=== PATIENT | female | born 1955 | race Caucasian/White ===

== ENCOUNTER 2021-08-13 14:00 | Outpatient (RCR) | payer MEDICARE, OTHER, SELFPAY ==
--- NOTE | 2021-07-19 09:59 | HP.PTEVAL ---
Patient's Visit Information FLORENCE SALGADO is a 65 year old F referred to Physical Therapy by Dr. Oswaldo Carlson MD with a diagnosis of R hip OA. Date of Evaluation: 07/16/21 Physical Therapist: Kapil Shah DPT - Visit Plan Frequency: 2x /Week Duration: 4 Weeks Plan: Start with BLE strengthening in aquatic setting. Focus on hip, core, quad, glutes. Pt. has not been very active over the past few months, adjust accordingly. - Subjective Pt. is here today for her initial evaluation with diagnosis of R hip OA. Pt. reports having pain in B hips, but her R is worse. Pt. reports trouble with sitting, getting up from sitting and lying down. Pt. reports overall having decreased exercise over the past few years due to covid. She was going to have her hip replaced previously, but did not due to COVID. She is sleeping in chair, lift chair due to weakness and pain. Pt. reports pain in C sign at bilateral hips. Pt. reports decreased pain at times when not moving, but never goes away. She ambulates with a cane, too painful without. Pt. denies N/T. She is hopeful to reduce reduce symptoms and get stronger for a LORE next month. - Pain L hip Pain Intensity (Out of 10): 4 Pain Intensity Range: 2, 6 R hip Pain Intensity (Out of 10): 4 Pain Intensity Range: 1, 5 - Objective POSTURE: Pt. has flexed posture, frequent wt. shifting from side to side. Uses cane to off load. PALPATION: Pt. has pain at B anterior hips. No lateral hip pain. NEURO: pt. has normal sensation in BLEs. Pt. has normal DTR bilaterally. ROM: Pt. has decreased hip ER/IR in B hips: 0 deg of hip IR, 30deg of hip ER, extension to 0deg, flexion ~85deg bilat. Pt. has tight hamstrings bilat. MMT: Pt. has 4-/5 strength through out BLEs. difficulty testing hip abd due to inability to lying on side. GAIT: Pt. ambulates with SPC, but has difficulty with increased lateral hip translation, trandelenburg noted, suggesting glute med weakness. Pt. has increased pain with each step. Pt. ambulated 255' this date prior to needing to stop. STAIRS: pt. able to negotiate with step to pattern, and lateral fashion at some points. - Balance/Special Test Scores Lower Extremity Functional Score: 18 TUG Test Time Seconds: 17 30 Second Chair Rise Test Seconds: 5 - Goals Goal 1:: LTG: Pt. to be I with HEP for B hip and LE strengthening. Goal Time Frame: 4-6 Weeks Goal 2:: STG: pt. to ambulate with SPC with decreased lateral hip translation for ~300 feet. Goal Time Frame: 2-4 Weeks Goal 3:: LTG: Pt. to have increased strength in BLEs to 4/ allowing for increased strength heading into LORE. Goal Time Frame: 4-6 Weeks Goal 4:: LTG: Pt. to complete sit to stand 30 sec rep test with at least 10 reps indicating increased functional strength. Goal Time Frame: 4-6 Weeks Goal 5:: LTG: Pt. to complete TUG in less than 12 sec indicating increased functional mobility/independence. Goal Time Frame: 4-6 Weeks - Rehabilitation Potential Physical Therapy Diagnosis: Pt. has signs and symptoms consistent with B hip OA. Pt. is having surgery in July and would benefit from increased strengthening in aquatic setting to provide potential for better outcome. Rehabilitation Potential: Good - Anticipated Interventions Patient/Client Instruction: Educate patient on: Condition, Plan of Care, Risk Factors, Benefits of Fitness Program For the Purpose of:: To facilitate caregiver knowledge, To improve self management, To prevent re-injury, To improve ability to perform tasks related to life management, To improve tolerance to ADL's Therapeutic Exercise to Include: Strength training, Power training, Endurance training, Balance training, Body mechanics, Postural training, Flexibilty training, Gait and locomotor training, In an aquatic setting, Active ROM, Dynamic Lumbar Stabilization For the Purpose of:: To decrease pain, To increase ROM, To improve nutrient delivery to tissue, To increase oxygenation perfusion, To improve muscle performance and motor function, To improve ability of physical actions for home/community/work/leisure, To improve gait and locomotor functions, To decrease soft tissue restriction, To increase flexibility/ROM, To improve endurance, To improve balance Thank you for the opportunity to evaluate your patient. For Medicare and Medicare HMO plans, please review the plan of care and approve it. It will need to be FAXED BACK to us at [phone] for Medicare purposes. For Medicare only, by signing this I certify the plan of care. Please let me know if there are questions or concerns regarding this plan of care. Physician Signature: Date:
--- NOTE | 2021-08-16 08:34 | HP.PTDCSUM ---
It has been my pleasure to treat FLORENCE SALGADO referred by Dr. Oswaldo Carlson MD, with the diagnosis of R hip OA for a total of 11 visit(s). Discharge Date: 08/13/21 Please see the following information for a summary of their discharge status. Subjective: Pt. reports overall doing well. She feels stronger, but not much change in her pain. Pt. pleased with progress. she reports being HEP compliant. She is to have surgery next week. L hip Pain Intensity (Out of 10): 2 R hip Pain Intensity (Out of 10): 2 % Improvement: 50 Objective/Function: ROM: R hip: flexion 90deg, abd 45deg, ER 30deg, IR 10deg. MMT: pt. has 4/5 strength throughout R LE. Pt. reports mild increase in pain with ER, abd and flexion testing. GAIT: Pt. still has increased pain with R stance phase. Marked lateral hip translation during stance phase. Pt. has slight trandelemburg during R stance phase. STAIRS: Pt. has step to pattern with use of BHR increased pain during R stance phase. Goal 1:: LTG: Pt. to be I with HEP for B hip and LE strengthening. Goal Progress: Goal Met Goal 2:: STG: pt. to ambulate with SPC with decreased lateral hip translation for ~300 feet. Goal Progress: Goal Met Goal 3:: LTG: Pt. to have increased strength in BLEs to 4/5 allowing for increased strength heading into LORE. Goal Progress: Goal Met Goal 4:: LTG: Pt. to complete sit to stand 30 sec rep test with at least 10 reps indicating increased functional strength. Goal Progress: Progressing Goal 5:: LTG: Pt. to complete TUG in less than 12 sec indicating increased functional mobility/independence. Goal Progress: Progressing Plan: Pt. to be DC from PT at this point in time. Pt. to have surgery next week. Discharge Comments: Pt. was treated in aquatic setting for her hip. Focus on strengthening and mobility. Pt. to be DC to HEP with surgery next week. If there are questions or concerns regarding this patient's physical therapy, please feel free to call me at [phone]. Thank you for the referral of this patient. Sincerely, Kapil Ruiz Sipos, DPT Balance/Gait/Functional tests - Balance/Special Test Scores Lower Extremity Functional Score: 25 TUG Test Time Seconds: 17 Tug Test: <20 sec.=mostly independent 30 Second Chair Rise Test Seconds: 5
== END 2021-08-13 19:00 | disposition home or self-care (01) ==
LOC: PT 14:00
PROVIDERS: PCP Family Medicine; Referring Provider Specialist; Visit Provider Specialist
DX: M16.11 Unilateral primary osteoarthritis, right hip (principal); E66.8 Other obesity; Z68.41 Body mass index [BMI] 40.0-44.9, adult
CPT/HCPCS: 97113; 97161; 97164

== ENCOUNTER 2022-03-08 10:30 | Outpatient (RCR) | payer MEDICARE, OTHER, SELFPAY ==
--- NOTE | 2021-12-14 12:23 | HP.PTEVAL ---
Patient's Visit Information FLORENCE SALGADO is a 66 year old F referred to Physical Therapy by Deion Enciso PA-C with a diagnosis of Left Total Hip Replacement. Date of Evaluation: 12/14/21 Physical Therapist: Maribel Kilgore DPT - Visit Plan Frequency: 2x /Week Duration: 4 Weeks Plan: Focus on LE and core strength/stabilization, Significant glut med weakness- increased pelvis translation. GLUT STRENGTH!!! HEP Given IE: Supine Bent Knee Fall Out, Supine Clams with OTB, side stepping and weight shifts without hip translation - Subjective Left Total Hip Replacement at the end of July. She went to [facility] for therapy- did 8 weeks- Dr. Carlson wanted her to do more therapy- so she went home and did home exercises and walk a lot. She went back to see the MD again and he referred her back to therapy. She has walked with a cane for a long time due to unsteadiness and pain. She has no hip pain at all at this time. She is here to work on strength and balance. She only uses the cane when she goes out into the community. Fully I with all ADL's. No falls. She is not currently doing a home exercise program. She does not have back problems. Sleep: not disturbed. She does not have a gym membership. PMHx/Meds: no change since last visit. - Objective Posture: FH, RS- can correct with verbal cues but does not maintain. Gait: significant translation at the pelvis- straight cabe. HR/TR: able without incidence. SLS: moderate hip drop with increased muscle activation and sway- unable to SLS. Stairs: asc/desc 8 non recip ROM: WNL in all planes of the LE and lumbar spine. Strength: Core: fair minus, Hip: 4-/5 IR/ER, Abd, glut med (clams): dependent on therapist, flexion, 4/5 extension and adduction, Knee: 5/5, Ankle: 5/5. Flex: HS: mild, Gastroc: moderate. Palpation: not tender to touch - Balance/Special Test Scores Lower Extremity Functional Score: 58 - Goals Goal 1:: Patient will be I with HEP and progression Goal Time Frame: 4-6 Weeks Goal 2:: Patient will ambulate >300 feet with a normalized gait pattern and LRD Goal Time Frame: 4-6 Weeks Goal 3:: Patient will asc/desc 8 stairs recip with 1 HR Goal Time Frame: 4-6 Weeks Goal 4:: Patient will perform 10 clam shell exercises without a band indep Goal Time Frame: 4-6 Weeks Goal 5:: Patient will report 80% improvement Goal Time Frame: 4-6 Weeks - Rehabilitation Potential Physical Therapy Diagnosis: Patient presents with hypomobility- she has decreased LE and core strength/stabilization specifically glut med strength and muscular endurance leading to an abnormal gait pattern and increased difficulty with ADL's Rehabilitation Potential: Good - Anticipated Interventions Patient/Client Instruction: Educate patient on: Benefits of Fitness Program Therapeutic Exercise to Include: Strength training, Endurance training, Balance training, Coordination, Agility training, Body mechanics, Postural training, Flexibilty training, Gait and locomotor training, Dynamic Lumbar Stabilization, Scapular Strength/Stabilization For the Purpose of:: To improve muscle performance and motor function TENS: Yes Cryotherapy (ice pack, ice massage): Yes Thermo therapy (hot pack): Yes Thank you for the opportunity to evaluate your patient. For Medicare and Medicare HMO plans, please review the plan of care and approve it. It will need to be FAXED BACK to us at [phone] for Medicare purposes. For Medicare only, by signing this I certify the plan of care. Please let me know if there are questions or concerns regarding this plan of care. Physician Signature: Date:
--- NOTE | 2022-01-18 13:03 | HP.PTREVAL ---
Deion Enciso PA-C, It has been my pleasure to treat FLORENCE SALGADO over the last 10 visits for Left Total Hip Replacement. Please see the progress note below for an update on the physical therapy plan of care! Subjective: Pt is still struggling with her walking and not walking normal yet and still uses her can when out and about. She still is not able to go recip stairs and she notices some weakness in that hip still. She can roll on her L side and then it gets uncomfortable. Objective/Function: Clam shells: unable to do a clam shell due to increase weakness. Gait: walks with major tredelenburg gait. Stairs: up and down stairs recip with 1 hand rail Plan Plan: AT for Focus on LE and core strength/stabilization, Significant glut med weakness- increased pelvis translation. GLUT STRENGTH!!! Work on no antalgic gait as well. 2X/ week for 4 weeks. HEP Given IE: Supine Bent Knee Fall Out, Supine Clams with OTB, side stepping and weight shifts without hip translation Balance/Gait/Functional tests - Balance/Special Test Scores Lower Extremity Functional Score: 45 Tug Test: <20 sec.=mostly independent 30 Second Chair Rise Test Seconds: 14 Goals Goal 1:: Patient will be I with HEP and progression Goal Time Frame: 4-6 Weeks Goal 2:: Patient will ambulate >300 feet with a normalized gait pattern and LRD Goal Time Frame: 4-6 Weeks Goal Progress: Progressing Goal 3:: Patient will asc/desc 8 stairs recip with 1 HR Goal Time Frame: 4-6 Weeks Goal 4:: Patient will perform 10 clam shell exercises without a band indep Goal Time Frame: 4-6 Weeks Goal 5:: Patient will report 80% improvement Goal Time Frame: 4-6 Weeks Anticipated Interventions Patient/Client Instruction: Educate patient on: Benefits of Fitness Program Therapeutic Exercise to Include: Strength training, Endurance training, Balance training, Coordination, Agility training, Body mechanics, Postural training, Flexibilty training, Gait and locomotor training, Dynamic Lumbar Stabilization, Scapular Strength/Stabilization For the Purpose of:: To improve muscle performance and motor function TENS: Yes Cryotherapy (ice pack, ice massage): Yes Thermo therapy (hot pack): Yes Please do not hesitate to contact me at [phone] by phone or if you have questions or concerns regarding this new plan of care! Sincerely, Lindy Frost, MPT
--- NOTE | 2022-03-08 10:42 | HP.PTDCSUM ---
It has been my pleasure to treat FLORENCE SALGADO referred by Deion Enciso PA-C, with the diagnosis of Left Total Hip Replacement for a total of 19 visit(s). Discharge Date: Please see the following information for a summary of their discharge status. Subjective: Patient reports that she is doing okay, she has her ups and down with OA- she was on Meloxicam but her PCP did not want her to take it- she was miserable. She is planning to take her BP and continue with the meds. She is taking it again- she has a huge family coming in for Thanksgiving. % Improvement: 85 Objective/Function: Posture: FH, RS- can correct with verbal cues but does not maintain. Gait: moderate translation at the pelvis- no AD. HR/TR: able without incidence. SLS: mild hip drop with increased muscle activation and sway- unable to SLS. Stairs: asc/desc 8 non recip preference- can do recip with 2 HR ROM: WNL in all planes of the LE and lumbar spine. Strength: Core: fair minus, Hip: 4/5 IR/ER, Abd, 4/5 flexion, 4/5 extension and adduction, Knee: 5/5, Ankle: 5/5. Flex: HS: mild, Gastroc: moderate. Palpation: not tender to touch Goal 1:: Patient will be I with HEP and progression Goal Progress: Goal Met Goal 2:: Patient will ambulate >300 feet with a normalized gait pattern and LRD Goal Progress: Progressing Goal 3:: Patient will asc/desc 8 stairs recip with 1 HR Goal Progress: Progressing Goal 4:: Patient will perform 10 clam shell exercises without a band indep Goal Progress: Progressing Goal 5:: Patient will report 80% improvement Goal Progress: Goal Met Plan: 03/08/22: Discharge to I HEP- encouraged to call if questions. *f/u with new HEP tasks d/t recent non-compliance. *Add noodle stomp/leg press. AT for Focus on LE and core strength/stabilization, Significant glut med weakness- increased pelvis translation. GLUT STRENGTH!!! Work on no antalgic gait as well. 2X/ week for 4 weeks. HEP Given IE: Supine Bent Knee Fall Out, Supine Clams with OTB, side stepping and weight shifts without hip translation If there are questions or concerns regarding this patient's physical therapy, please feel free to call me at [phone]. Thank you for the referral of this patient. Sincerely, Maribel Kilgore, ROMULOT Balance/Gait/Functional tests - Balance/Special Test Scores Lower Extremity Functional Score: 58 Tug Test: <20 sec.=mostly independent 30 Second Chair Rise Test Seconds: 14
== END 2022-03-08 14:04 | disposition home or self-care (01) ==
LOC: PT 10:30
PROVIDERS: PCP Family Medicine; Referring Provider Physician Assistant Surgical; Visit Provider Physician Assistant Surgical
DX: Z47.1 Aftercare following joint replacement surgery (principal); Z96.642 Presence of left artificial hip joint
CPT/HCPCS: 97110; 97113; 97162; 97164; 97530; A4216; J2785

== ENCOUNTER → 2022-11-16 | Outpatient (CLI) | payer MEDICARE, OTHER, SELFPAY ==
--- NOTE | 2022-11-16 13:22 | BI_ITS ---
MAMMOGRAPHY - BILATERAL SCREENING REASON FOR EXAM: Female, 67 years old. Routine annual screening examination. PERTINENT HISTORY: Non-contributory. Remote left excisional breast biopsy. TECHNIQUE: Digital bilateral breast padmini (3D mammographic acquisition) in the CC and MLO projections. 2-D mediolateral oblique (MLO) and craniocaudad (CC) views of both breasts were obtained. CAD: Full Field Digital Mammography with Computer Added Detection was performed. COMPARISON: Comparison is made with prior outside examination dated June 04, 2019. FINDINGS: Breast Composition: The breasts are almost entirely fatty. There are no dominant masses or suspicious calcifications. No other significant abnormalities are identified. There has been no significant change since the prior study. BI/SCRN MAMM (CAD)W/PADMINI BILAT IMPRESSION: Stable bilateral screening mammogram. Yearly follow-up mammogram recommended. (A) ASSESSMENT CATEGORY: BIRADS Category 1: Negative. A letter regarding these results will be sent to the patient by the facility within 30 days. Approximately 10% of breast cancers are not detected by mammography. A normal mammogram should not delay biopsy of a clinically suspicious abnormality. [id number] Electronically Signed: Naseem Benavides MD at 14:08 EDT ,
== END | disposition home or self-care (01) ==
LOC: OPBI 13:21
PROVIDERS: PCP Family Medicine; Referring Provider Nurse Practitioner Women's Health; Visit Provider Nurse Practitioner Women's Health
DX: Z12.31 Encounter for screening mammogram for malignant neoplasm of breast (principal)
CPT/HCPCS: 77063; 77067

== ENCOUNTER → 2022-11-29 | Outpatient (CLI) | payer MEDICARE, OTHER, SELFPAY ==
[2022-11-29 09:32] LABS: Free T3 2.6 pg/mL (2.18-3.98); T4 Free Direct 1.26 ng/dL (0.76-1.46); Thyroid Stim Hormone (TSH) 0.18 uIU/mL (0.358-3.74)
== END | disposition home or self-care (01) ==
LOC: PAVLAB 08:44
PROVIDERS: PCP Family Medicine; Referring Provider Family Medicine; Visit Provider Family Medicine
DX: E03.9 Hypothyroidism, unspecified (principal)
CPT/HCPCS: 36415; 84439; 84443; 84481

== ENCOUNTER → 2024-09-30 | Outpatient (CLI) | payer MEDICARE, OTHER, SELFPAY ==
--- NOTE | 2024-09-30 14:25 | BI_ITS ---
EXAM: SCRN MAMM (CAD)W/PADMINI BILAT DATE: 09/30/2024 CLINICAL HISTORY: F, Age 69 y/o , SCREENING No family history. Remote left excisional breast biopsy. BREAST CANCER RISK ASSESSMENT: Not assessed. TECHNIQUE: Bilateral screening digital breast tomosynthesis with 2D and 3D images. Computer aided detection. COMPARISON: Prior exam(s) dated November 16, 2022.. FINDINGS: TISSUE DENSITY: The breast tissue is almost entirely fatty. Bilateral Breast Mammographic Findings: No significant masses, calcifications or other abnormalities are identified. No suspicious masses, areas of developing architectural distortion, or suspicious calcifications. There has been no significant interval change. BI/SCRN MAMM (CAD)W/PADMINI BILAT IMPRESSION: OVERALL FINAL ASSESSMENT: BIRADS 1 NEGATIVE RECOMMENDATION: Routine annual follow-up in 1 Year A letter with findings and recommendations will be mailed to the patient. Reading Location: [place] [id number]
== END | disposition home or self-care (01) ==
LOC: OPBI 14:21
PROVIDERS: PCP Family Medicine; Referring Provider Family Medicine; Visit Provider Family Medicine
DX: Z12.31 Encounter for screening mammogram for malignant neoplasm of breast (principal)
CPT/HCPCS: 77063; 77067